=== PATIENT | male | born 1955 | race Caucasian/White ===

== ENCOUNTER 2021-04-23 16:07 | Inpatient (IN) ==
[2021-04-23] MEDS ORDERED: Isovue-370 500 ML BOTTLE IVP ONE (16:16)
[2021-04-23] MEDS ORDERED: Ipratropium/Albuterol Neb 3 ML IH ONE (16:16)
[2021-04-23] MEDS ORDERED: methylPREDNISolone 125 MG/2 ML VIAL IVP ONE (16:16)
[2021-04-23 16:29] LABS: Basophils # 0.1 K/mcL (0.0-0.2); Basophils % 0.3 %; Eosinophils % 0.1 %; Hematocrit 35.5 % (37.5-50.1); Hemoglobin 11.2 g/dL (12.9-16.9); Immature Granulocytes % 0.6 % (0-4); Lymphocytes # 0.9 K/mcL (0.6-4.6); Lymphocytes % 4.5 %; Mean Corpuscular HGB Conc 31.5 g/dL (31.6-35.5); Mean Corpuscular Hemoglobin 30.1 pg (28.0-33.3); Mean Corpuscular Volume 95.4 fL (83.0-100.0); Mean Platelet Volume 9.1 fL (9.4-12.4); Monocytes % 5.1 %; Neutrophils # 17.4 K/mcL (1.6-8.9); Platelet Count 329 K/mcL (140-400); Red Blood Count 3.72 M/mcL (4.19-5.50); Red Cell Distribution Width 16.1 % (11.5-14.5); Segmented Neutrophils % 89.4 %; White Blood Count 19.4 K/mcL (4.3-11.1)
[2021-04-23 16:38] LABS: INR 1.3; Prothrombin Time 14.8 Seconds (9.4-12.1)
[2021-04-23 16:41] LABS: Activated Partial Thrombo Time 32.5 Seconds (26.0-36.0)
[2021-04-23 17:03] LABS: Alanine Aminotransferase 27 Units/L (7-52); Albumin 3.7 g/dL (3.5-5.7); Albumin/Globulin Ratio 0.9 (1.1-2.2); Alkaline Phosphatase 103 Units/L (34-104); Aspartate Amino Transferase 17 Units/L (13-39); BUN/Creatinine Ratio 17 (6-26); Bilirubin,Direct 0.3 mg/dL (0.0-0.2); Bilirubin,Indirect 0.5 mg/dL (0.0-1.0); Bilirubin,Total 0.8 mg/dL (0.3-1.0); Blood Urea Nitrogen 16 mg/dL (8-23); Calcium 9.2 mg/dL (8.6-10.3); Carbon Dioxide 26 mEq/L (23-29); Chloride 94 mEq/L (98-107); Globulin 4.2 g/dL (2.4-3.5); Glucose 197 mg/dL (70-105); Osmolality,Calculated 281 (280-300); Potassium 4.2 mEq/L (3.5-5.1); Sodium 132 mEq/L (136-145); Total Protein 7.9 g/dL (6.4-8.9); Troponin I 0.03 ng/mL (< 0.04); eGFR For African Americans > 60 (> 60); eGFR For Non-African Americans > 60 (> 60)
[2021-04-23] MEDS ORDERED: cefTRIAXone 2,000 MG in Water for inj. (sterile) 20 ML IVP ONE (17:23)
[2021-04-23 18:46] LABS: Influenza A PCR Negative (Negative); Influenza B PCR Negative (Negative); Resp. Syncytial Virus PCR Negative (Negative)
[2021-04-23 18:52] LABS: SARS-CoV-2 by PCR (In House) Negative (Negative)
[2021-04-23] MEDS ORDERED: Acetaminophen 325 MG TABLET PO PRN (20:21)
[2021-04-23] MEDS ORDERED: Ondansetron 4 MG/2 ML VIAL IVP PRN (20:21)
[2021-04-23] MEDS ORDERED: Naloxone 0.4 MG/ML INJ IVP PRN (20:21)
[2021-04-23] MEDS ORDERED: Ipratropium/Albuterol Neb 3 ML IH PRN (21:38)
[2021-04-23] MEDS ORDERED: Dextrose Gel 15 GM/37.5 ML TUBE PO PRN ×2 (21:45)
[2021-04-23] MEDS ORDERED: D5% in Water 1,000 ML IVC PRN (21:45)
[2021-04-23] MEDS ORDERED: *HR* Dextrose 50 % in Water (Syg) 50 ML SYRINGE IVP PRN (21:45)
[2021-04-24] MEDS ORDERED: ALPRAZolam 1 MG TABLET PO ONE (02:34)
[2021-04-24] MEDS: Nicotine 14 MG PATCH.TD24 TD SCH (03:03)
[2021-04-24] MEDS: methylPREDNISolone 125 MG/2 ML VIAL IVP SCH ×2 (05:53→16:46)
[2021-04-24 06:46] LABS: BUN/Creatinine Ratio 25 (6-26); Blood Urea Nitrogen 19 mg/dL (8-23); Carbon Dioxide 26 mEq/L (23-29); Chloride 98 mEq/L (98-107); Glucose 113 mg/dL (70-105); Magnesium 2.2 mg/dL (1.6-2.6); Osmolality,Calculated 283 (280-300); Potassium 4.1 mEq/L (3.5-5.1); Sodium 135 mEq/L (136-145); eGFR For African Americans > 60 (> 60); eGFR For Non-African Americans > 60 (> 60)
[2021-04-24] MEDS ORDERED: Insulin LISPRO 300 UNITS/3 ML VIAL SUBQ SCH (07:30)
[2021-04-24] MEDS ORDERED: *HR* Enoxaparin 40 MG/0.4 ML SYRINGE SQ SCH (09:00)
[2021-04-24] MEDS ORDERED: levoFLOXacin 750 MG/150 ML 750 MG/150 ML BAG IVPB SCH (09:00)
[2021-04-24 09:04] LABS: Estimated Average Glucose 108 mg/dl; Hemoglobin A1C 5.4 %
[2021-04-24] MEDS ORDERED: *HR* LORazepam 1 MG TABLET PO PRN (10:46)
[2021-04-24 11:33] LABS: Adenovirus Not Detected (Not Detect); Bordetella Pertussis Not Detected (Not Detect); Chlamydophila pneumoniae Not Detected (Not Detect); Coronavirus 229E Not Detected (Not Detect); Coronavirus HKU1 Not Detected (Not Detect); Coronavirus NL63 Not Detected (Not Detect); Coronavirus OC43 Not Detected (Not Detect); Human Metapneumovirus Not Detected (Not Detect); Human Rhinovirus/Enterovirus Not Detected (Not Detect); Influenza A Subtype 2009 H1 Not Detected (Not Detect); Influenza B Not Detected (Not Detect); Mycoplasma pneumoniae Not Detected (Not Detect); Parainfluenza Virus 1 Not Detected (Not Detect); Parainfluenza Virus 2 Not Detected (Not Detect); Parainfluenza Virus 3 Not Detected (Not Detect); Parainfluenza Virus 4 Not Detected (Not Detect); Respiratory Syncytial Virus Not Detected (Not Detect); SARS-CoV-2 Not Detected (Not Detect)
[2021-04-24 14:14] LABS: Bilirubin,Urine Negative (Negative); Blood,Urine Negative (Negative); Clarity,Urine Clear (Clear); Color,Urine Light-Yellow (Yellow); Glucose,Urine (UA) Normal (Normal); Ketones,Urine Negative (Negative); Leukocyte Esterase,Urine Negative (Negative); Nitrite,Urine Negative (Negative); Protein,Urine Negative (Neg-Trace); Specific Gravity,Urine 1.019 (1.010-1.025); Urobilinogen,Urine Normal (Normal)
[2021-04-24 16:46] LABS: Red Cell Distribution Width 15.7 % (11.5-14.5)
[2021-04-24] MEDS: ALPRAZolam 1 MG TABLET PO SCH ×2 (16:46→20:19)
[2021-04-24 16:47] LABS: Hematocrit 34.4 % (37.5-50.1); Hemoglobin 11.2 g/dL (12.9-16.9); Mean Corpuscular HGB Conc 32.6 g/dL (31.6-35.5); Mean Corpuscular Hemoglobin 31.5 pg (28.0-33.3); Mean Corpuscular Volume 96.6 fL (83.0-100.0); Mean Platelet Volume 9.4 fL (9.4-12.4); Platelet Count 315 K/mcL (140-400); Red Blood Count 3.56 M/mcL (4.19-5.50); White Blood Count 25.6 K/mcL (4.3-11.1)
[2021-04-24 17:32] LABS: Lymphocytes # 1.5 K/mcL (0.6-4.6); Monocytes # 1.3 K/mcL (0.0-1.3); Neutrophils # 22.8 K/mcL (1.6-8.9); Platelet Estimate Normal (Normal)
[2021-04-25] MEDS: *HR* Enoxaparin 40 MG/0.4 ML SYRINGE SQ SCH (05:38)
[2021-04-25] MEDS: methylPREDNISolone 125 MG/2 ML VIAL IVP SCH ×2 (05:38→17:09)
[2021-04-25 05:59] LABS: Hematocrit 34.3 % (37.5-50.1); Mean Corpuscular Volume 96.1 fL (83.0-100.0); Mean Platelet Volume 9.3 fL (9.4-12.4); Red Blood Count 3.57 M/mcL (4.19-5.50); Red Cell Distribution Width 15.7 % (11.5-14.5)
[2021-04-25 06:00] LABS: Hemoglobin 10.6 g/dL (12.9-16.9); Mean Corpuscular HGB Conc 30.9 g/dL (31.6-35.5); Mean Corpuscular Hemoglobin 29.7 pg (28.0-33.3); Platelet Count 295 K/mcL (140-400)
[2021-04-25 06:18] LABS: BUN/Creatinine Ratio 30 (6-26); Blood Urea Nitrogen 24 mg/dL (8-23); Calcium 9.3 mg/dL (8.6-10.3); Carbon Dioxide 32 mEq/L (23-29); Chloride 98 mEq/L (98-107); Glucose 107 mg/dL (70-105); Magnesium 2.3 mg/dL (1.6-2.6); Osmolality,Calculated 287 (280-300); Phosphorous 4.1 mg/dL (2.7-4.5); Potassium 4.6 mEq/L (3.5-5.1); Sodium 136 mEq/L (136-145); eGFR For African Americans > 60 (> 60); eGFR For Non-African Americans > 60 (> 60)
[2021-04-25] MEDS: Nicotine 14 MG PATCH.TD24 TD SCH (08:10)
[2021-04-25] MEDS: levoFLOXacin 750 MG TABLET PO SCH (08:10)
[2021-04-25] MEDS: Piperacillin/Tazobactam 3.375 GM in 0.9 % Sodium Chloride Mini Bag 100 ML IVPB SCH ×2 (08:10→15:28)
[2021-04-25] MEDS: ALPRAZolam 1 MG TABLET PO SCH ×3 (08:10→20:28)
[2021-04-25] MEDS ORDERED: [UNRECOGNIZED DRUG - OTHER] BC SCH (08:30)
[2021-04-25] MEDS: Gabapentin 400 MG CAPSULE PO SCH ×4 (09:13→20:28)
[2021-04-25] MEDS: Tiotropium 10 INH DOSE IH SCH (11:42)
[2021-04-25 11:50] LABS: Adenovirus Not Detected (Not Detect); Bordetella Pertussis Not Detected (Not Detect); Coronavirus 229E Not Detected (Not Detect); Coronavirus HKU1 Not Detected (Not Detect); Coronavirus NL63 Not Detected (Not Detect); Coronavirus OC43 Not Detected (Not Detect); Human Metapneumovirus Not Detected (Not Detect); Human Rhinovirus/Enterovirus Not Detected (Not Detect); Influenza A Subtype 2009 H1 Not Detected (Not Detect); Influenza B Not Detected (Not Detect); Parainfluenza Virus 1 Not Detected (Not Detect); Parainfluenza Virus 2 Not Detected (Not Detect); Parainfluenza Virus 3 Not Detected (Not Detect); Parainfluenza Virus 4 Not Detected (Not Detect); Respiratory Syncytial Virus Not Detected (Not Detect); SARS-CoV-2 Not Detected (Not Detect)
[2021-04-25 11:51] LABS: Chlamydophila pneumoniae Not Detected (Not Detect); Mycoplasma pneumoniae Not Detected (Not Detect)
[2021-04-25] MEDS: Mirtazapine 15 MG TABLET PO SCH (20:28)
[2021-04-25] MEDS: Melatonin 3 MG TABLET PO SCH (20:28)
[2021-04-25] MEDS ORDERED: Melatonin 3 MG TABLET PO SCH (21:00)
[2021-04-26] MEDS: Piperacillin/Tazobactam 3.375 GM in 0.9 % Sodium Chloride Mini Bag 100 ML IVPB SCH ×3 (00:30→15:07)
[2021-04-26] MEDS: methylPREDNISolone 125 MG/2 ML VIAL IVP SCH ×2 (06:05→18:24)
[2021-04-26] MEDS: *HR* Enoxaparin 40 MG/0.4 ML SYRINGE SQ SCH (06:05)
[2021-04-26] MEDS: Tiotropium 10 INH DOSE IH SCH (09:26)
[2021-04-26] MEDS: levoFLOXacin 750 MG TABLET PO SCH (09:51)
[2021-04-26] MEDS: Nicotine 14 MG PATCH.TD24 TD SCH (09:51)
[2021-04-26] MEDS: ALPRAZolam 1 MG TABLET PO SCH ×3 (09:51→20:12)
[2021-04-26] MEDS: Gabapentin 400 MG CAPSULE PO SCH ×4 (09:51→20:12)
[2021-04-26] MEDS ORDERED: *HR* LORazepam 2 MG/ML VIAL IVP ONE ×2 (18:32→19:51)
[2021-04-26] MEDS: Melatonin 3 MG TABLET PO SCH (20:12)
[2021-04-26] MEDS: Mirtazapine 15 MG TABLET PO SCH (20:12)
[2021-04-27] MEDS: Piperacillin/Tazobactam 3.375 GM in 0.9 % Sodium Chloride Mini Bag 100 ML IVPB SCH ×4 (00:19→23:50)
[2021-04-27 02:41] LABS: Hematocrit 31.9 % (37.5-50.1); Hemoglobin 9.7 g/dL (12.9-16.9); Mean Corpuscular HGB Conc 30.4 g/dL (31.6-35.5); Mean Corpuscular Hemoglobin 29.4 pg (28.0-33.3); Mean Corpuscular Volume 96.7 fL (83.0-100.0); Mean Platelet Volume 8.8 fL (9.4-12.4); Platelet Count 270 K/mcL (140-400); Red Cell Distribution Width 16.3 % (11.5-14.5); White Blood Count 13.7 K/mcL (4.3-11.1)
[2021-04-27 03:03] LABS: BUN/Creatinine Ratio 27 (6-26); Blood Urea Nitrogen 28 mg/dL (8-23); Calcium 9.1 mg/dL (8.6-10.3); Carbon Dioxide 32 mEq/L (23-29); Chloride 95 mEq/L (98-107); Glucose 116 mg/dL (70-105); Magnesium 1.9 mg/dL (1.6-2.6); Osmolality,Calculated 282 (280-300); Phosphorous 3.4 mg/dL (2.7-4.5); Potassium 4.7 mEq/L (3.5-5.1); Sodium 133 mEq/L (136-145); eGFR For African Americans > 60 (> 60); eGFR For Non-African Americans > 60 (> 60)
[2021-04-27 03:19] LABS: Ferritin 412 ng/mL (20-250)
[2021-04-27] MEDS: methylPREDNISolone 125 MG/2 ML VIAL IVP SCH ×2 (05:08→16:59)
[2021-04-27] MEDS: *HR* Enoxaparin 40 MG/0.4 ML SYRINGE SQ SCH (05:11)
[2021-04-27] MEDS: Tiotropium 10 INH DOSE IH SCH (08:06)
[2021-04-27] MEDS: Nicotine 14 MG PATCH.TD24 TD SCH (08:56)
[2021-04-27] MEDS: Gabapentin 400 MG CAPSULE PO SCH ×4 (09:16→23:48)
[2021-04-27] MEDS: ALPRAZolam 1 MG TABLET PO SCH (09:19)
[2021-04-27] MEDS: levoFLOXacin 750 MG TABLET PO SCH (09:58)
[2021-04-27] MEDS ORDERED: Vancomycin 1,750 MG/517.5 ML IV.SOLN IVPB ONE (10:00)
[2021-04-27 11:32] LABS: Blood Gas Pressure Support 16 cm H2O; Mixed Venous Blood pCO2 77 mmHg (44-46); Mixed Venous Blood pH 7.29 pH Units (7.34-7.36); Mixed Venous Blood pO2 44 mmHg (35-45)
[2021-04-27] MEDS ORDERED: Ondansetron 4 MG/2 ML VIAL ONE (11:52)
[2021-04-27] MEDS ORDERED: *HR* Propofol 200 MG/20 ML VIAL IVP ONE (11:52)
[2021-04-27] MEDS ORDERED: Lidocaine -MPF 4% 5 ML AMPUL ONE (11:52)
[2021-04-27] MEDS ORDERED: *HR* Succinylcholine 200 MG/10 ML VIAL IVP ONE (11:52)
[2021-04-27] MEDS ORDERED: *HR* FentaNYL (PF) 100 MCG/2 ML VIAL ONE (11:52)
[2021-04-27] MEDS ORDERED: Lidocaine -MPF 2% 5 ML VIAL ONE (11:52)
[2021-04-27] MEDS ORDERED: Albuterol 2.5 MG/3 ML NEBULIZER IH PRN (12:29)
[2021-04-27] MEDS ORDERED: *HR* FentaNYL (PF) 100 MCG/2 ML VIAL IVP PRN (12:29)
[2021-04-27] MEDS ORDERED: Ondansetron 4 MG/2 ML VIAL IVP PRN (12:29)
[2021-04-27] MEDS ORDERED: *HR* EPINEPHrine 1 MG/10 ML SYRINGE INTRATRACH PRN (12:40)
[2021-04-27 16:52] LABS: ABG Base Excess 10 mEq/L (-2 to 3); ABG HCO3 37 mEq/L (21-27); ABG Oxygen Saturation 97 % (95-98); ABG PCO2 68 mmHg (35-45); ABG PH 7.35 pH Units (7.32-7.45); ABG PO2 95 mmHg (85-104); ABG TCO2 39 mEq/L (20-26)
[2021-04-27] MEDS: Melatonin 3 MG TABLET PO SCH (23:48)
[2021-04-27] MEDS: Mirtazapine 15 MG TABLET PO SCH (23:48)
[2021-04-28] MEDS: *HR* Enoxaparin 40 MG/0.4 ML SYRINGE SQ SCH (05:42)
[2021-04-28] MEDS: methylPREDNISolone 125 MG/2 ML VIAL IVP SCH ×2 (05:42→18:14)
[2021-04-28] MEDS: Gabapentin 400 MG CAPSULE PO SCH (07:49)
[2021-04-28] MEDS: Tiotropium 10 INH DOSE IH SCH (08:50)
[2021-04-28] MEDS: levoFLOXacin 750 MG/150 ML 750 MG/150 ML BAG IVPB SCH (09:28)
[2021-04-28] MEDS: Nicotine 14 MG PATCH.TD24 TD SCH (09:39)
[2021-04-28] MEDS: Piperacillin/Tazobactam 3.375 GM in 0.9 % Sodium Chloride Mini Bag 100 ML IVPB SCH ×3 (10:43→18:16)
[2021-04-28] MEDS: Vancomycin 1,500 MG/265 ML IV.SOLN IVPB SCH (11:16)
[2021-04-28 12:10] LABS: Basophils % 0.1 %; Hematocrit 32.7 % (37.5-50.1); Hemoglobin 10.3 g/dL (12.9-16.9); Immature Granulocytes % 0.6 % (0-4); Lymphocytes # 0.5 K/mcL (0.6-4.6); Lymphocytes % 3.9 %; Mean Corpuscular HGB Conc 31.5 g/dL (31.6-35.5); Mean Corpuscular Hemoglobin 29.9 pg (28.0-33.3); Mean Corpuscular Volume 94.8 fL (83.0-100.0); Mean Platelet Volume 8.7 fL (9.4-12.4); Monocytes # 0.8 K/mcL (0.0-1.3); Neutrophils # 12.3 K/mcL (1.6-8.9); Platelet Count 242 K/mcL (140-400); Red Blood Count 3.45 M/mcL (4.19-5.50); Red Cell Distribution Width 15.3 % (11.5-14.5); Segmented Neutrophils % 89.4 %; White Blood Count 13.8 K/mcL (4.3-11.1)
[2021-04-28 12:27] LABS: BUN/Creatinine Ratio 35 (6-26); Blood Urea Nitrogen 26 mg/dL (8-23); Calcium 9.1 mg/dL (8.6-10.3); Carbon Dioxide 35 mEq/L (23-29); Chloride 95 mEq/L (98-107); Glucose 119 mg/dL (70-105); Osmolality,Calculated 286 (280-300); Potassium 4.2 mEq/L (3.5-5.1); Sodium 135 mEq/L (136-145); eGFR For African Americans > 60 (> 60); eGFR For Non-African Americans > 60 (> 60)
[2021-04-28] MEDS: Gabapentin 100 MG CAPSULE PO SCH ×3 (13:08→20:07)
[2021-04-28] MEDS: Melatonin 3 MG TABLET PO SCH (20:07)
[2021-04-28] MEDS: ALPRAZolam 0.5 MG TABLET PO PRN (20:07)
[2021-04-28] MEDS: Mirtazapine 15 MG TABLET PO SCH (20:07)
[2021-04-29] MEDS: Piperacillin/Tazobactam 3.375 GM in 0.9 % Sodium Chloride Mini Bag 100 ML IVPB SCH ×3 (03:40→17:55)
[2021-04-29] MEDS: methylPREDNISolone 125 MG/2 ML VIAL IVP SCH ×2 (05:56→17:53)
[2021-04-29] MEDS: *HR* Enoxaparin 40 MG/0.4 ML SYRINGE SQ SCH (05:57)
[2021-04-29] MEDS: Tiotropium 10 INH DOSE IH SCH (07:49)
[2021-04-29] MEDS: levoFLOXacin 750 MG/150 ML 750 MG/150 ML BAG IVPB SCH (09:03)
[2021-04-29] MEDS: Gabapentin 100 MG CAPSULE PO SCH ×4 (09:03→21:20)
[2021-04-29] MEDS: Nicotine 14 MG PATCH.TD24 TD SCH (09:03)
[2021-04-29] MEDS: ALPRAZolam 0.5 MG TABLET PO PRN ×2 (09:03→17:53)
[2021-04-29] MEDS: Vancomycin 1,500 MG/265 ML IV.SOLN IVPB SCH (11:32)
[2021-04-29] MEDS: Vancomycin 2,000 MG/520 ML IV.SOLN IVPB SCH (12:05)
[2021-04-29] MEDS: Mirtazapine 15 MG TABLET PO SCH (21:19)
[2021-04-29] MEDS: Melatonin 3 MG TABLET PO SCH (21:19)
[2021-04-30] MEDS: Vancomycin 2,000 MG/520 ML IV.SOLN IVPB SCH ×2 (00:06→13:00)
[2021-04-30] MEDS: ALPRAZolam 0.5 MG TABLET PO PRN ×3 (01:55→21:21)
[2021-04-30] MEDS: Piperacillin/Tazobactam 3.375 GM in 0.9 % Sodium Chloride Mini Bag 100 ML IVPB SCH ×3 (01:55→17:58)
[2021-04-30] MEDS: *HR* Enoxaparin 40 MG/0.4 ML SYRINGE SQ SCH (05:41)
[2021-04-30] MEDS: methylPREDNISolone 125 MG/2 ML VIAL IVP SCH ×2 (05:42→17:57)
[2021-04-30] MEDS: Nicotine 14 MG PATCH.TD24 TD SCH (07:52)
[2021-04-30] MEDS: Gabapentin 100 MG CAPSULE PO SCH ×4 (07:52→21:15)
[2021-04-30] MEDS: levoFLOXacin 750 MG/150 ML 750 MG/150 ML BAG IVPB SCH (07:52)
[2021-04-30] MEDS: Tiotropium 10 INH DOSE IH SCH (08:38)
[2021-04-30 11:48] LABS: Basophils # 0.1 K/mcL (0.0-0.2); Basophils % 0.5 %; Eosinophils % 0.1 %; Hematocrit 34.7 % (37.5-50.1); Hemoglobin 10.9 g/dL (12.9-16.9); Lymphocytes # 0.6 K/mcL (0.6-4.6); Lymphocytes % 4.5 %; Mean Corpuscular HGB Conc 31.4 g/dL (31.6-35.5); Mean Corpuscular Hemoglobin 29.5 pg (28.0-33.3); Mean Corpuscular Volume 93.8 fL (83.0-100.0); Mean Platelet Volume 9.6 fL (9.4-12.4); Monocytes # 0.3 K/mcL (0.0-1.3); Monocytes % 2.7 %; Platelet Count 250 K/mcL (140-400); Red Cell Distribution Width 15.6 % (11.5-14.5); Segmented Neutrophils % 88.2 %; White Blood Count 12.4 K/mcL (4.3-11.1)
[2021-04-30 12:01] LABS: BUN/Creatinine Ratio 24 (6-26); Blood Urea Nitrogen 20 mg/dL (8-23); Carbon Dioxide 31 mEq/L (23-29); Chloride 101 mEq/L (98-107); Glucose 158 mg/dL (70-105); Osmolality,Calculated 292 (280-300); Potassium 5.3 mEq/L (3.5-5.1); Sodium 138 mEq/L (136-145); eGFR For African Americans > 60 (> 60); eGFR For Non-African Americans > 60 (> 60)
[2021-04-30] MEDS: Mirtazapine 15 MG TABLET PO SCH (21:15)
[2021-04-30] MEDS: Melatonin 3 MG TABLET PO SCH (21:15)
[2021-05-01] MEDS: Vancomycin 2,000 MG/520 ML IV.SOLN IVPB SCH ×2 (02:00→11:59)
[2021-05-01] MEDS: Piperacillin/Tazobactam 3.375 GM in 0.9 % Sodium Chloride Mini Bag 100 ML IVPB SCH ×2 (02:00→11:58)
[2021-05-01] MEDS: *HR* Enoxaparin 40 MG/0.4 ML SYRINGE SQ SCH (06:01)
[2021-05-01] MEDS: methylPREDNISolone 125 MG/2 ML VIAL IVP SCH (06:02)
[2021-05-01] MEDS: Tiotropium 10 INH DOSE IH SCH (07:24)
[2021-05-01] MEDS: Gabapentin 100 MG CAPSULE PO SCH ×2 (09:38→14:38)
[2021-05-01] MEDS: Nicotine 14 MG PATCH.TD24 TD SCH (09:40)
[2021-05-01] MEDS: ALPRAZolam 0.5 MG TABLET PO PRN (09:41)
[2021-05-01] MEDS: levoFLOXacin 750 MG/150 ML 750 MG/150 ML BAG IVPB SCH (09:42)
[2021-05-01 14:47] LABS: BUN/Creatinine Ratio 20 (6-26); Blood Urea Nitrogen 17 mg/dL (8-23); Calcium 9.1 mg/dL (8.6-10.3); Carbon Dioxide 33 mEq/L (23-29); Chloride 100 mEq/L (98-107); Glucose 128 mg/dL (70-105); Osmolality,Calculated 291 (280-300); Potassium 4.3 mEq/L (3.5-5.1); Sodium 139 mEq/L (136-145); eGFR For African Americans > 60 (> 60); eGFR For Non-African Americans > 60 (> 60)
[2021-05-01 15:22] VITALS: BP 154/84; PULSE 97; TEMP 97.5; O2SAT 97
== END 2021-05-01 16:55 | disposition home health service (06) | DRG 853 ==
LOC: EMEROOARM 16:07 → 2ANU 22:06 → SUATTDRO 22:06 → 2ANU 23:26
PROVIDERS: ADMIT Family Medicine; ATTEND Internal Medicine
PROC: ENDOBRF (2021-04-27 11:30)